=== PATIENT | female | born 1995 | race American Indian/Alaskan Native ===

== ENCOUNTER 2017-04-19 03:56 | Emergency (ER) | payer MEDICAID ==
[2017-04-19 05:37] VITALS: BP 130/65
--- NOTE | 2017-04-19 06:22 | Emergency Department Report ---
- General Chief Complaint: Upper Respiratory Infection Stated Complaint: SORE THROAT,COUGH Time Seen by Provider: 04/19/17 06:17 Source: patient Mode of arrival: Ambulatory Limitations: No Limitations - History of Present Illness Initial Comments: 21-year-old female that is 4 para 3 comes in today stating he' s had a sore throat and has been coughing up green sputum for the last 2 days. Patient reports she's had no fever but chills. He denies any diarrhea or vomiting. She states that she has been nauseated but thinks is due to her . Patient reports she is currently 14 weeks . 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 She reports she's been taking vitamins has no known drug allergies and only a history of asthma. MD Complaint: fever, cough, sore throat -: days(s) (2) Severity: mild Severity scale (0 -10): 4 Worsens With: nothing Context: sick contacts - Related Data Allergies Allergy/AdvReac Type Severity Reaction Status Date / Time No Known Allergies Allergy Unverified 04/19/17 05:31 ED Review of Systems ROS: Stated complaint: SORE THROAT,COUGH Other details as noted in HPI Constitutional: chills. denies: fever Eyes: denies: eye pain, eye discharge, vision change ENT: throat pain Respiratory: cough Cardiovascular: denies: chest pain, palpitations Endocrine: no symptoms reported Gastrointestinal: nausea. denies: abdominal pain, diarrhea Genitourinary: denies: urgency, dysuria, discharge Musculoskeletal: denies: back pain, joint swelling, arthralgia Skin: denies: rash, lesions Neurological: denies: headache, weakness, paresthesias Psychiatric: denies: anxiety, depression Hematological/Lymphatic: denies: easy bleeding, easy bruising ED Past Medical Hx - Past Medical History Previous Medical History?: Yes Additional medical history: Patient is 14 weeks - Social History Smoking Status: Never Smoker ED Physical Exam - General Limitations: No Limitations General appearance: alert, in no apparent distress - Head Head exam: Present: atraumatic, normocephalic - Eye Eye exam: Present: normal appearance - ENT ENT exam: Present: mucous membranes moist - Neck Neck exam: Present: normal inspection - Respiratory Respiratory exam: Present: normal lung sounds bilaterally. Absent: respiratory distress - Cardiovascular Cardiovascular Exam: Present: regular rate, normal rhythm. Absent: systolic murmur, diastolic murmur, rubs, gallop - GI/Abdominal GI/Abdominal exam: Present: soft, normal bowel sounds - Extremities Exam Extremities exam: Present: normal inspection - Back Exam Back exam: Present: normal inspection - Neurological Exam Neurological exam: Present: alert, oriented X3 - Psychiatric Psychiatric exam: Present: normal affect, normal mood - Skin Skin exam: Present: warm, dry, intact, normal color. Absent: rash ED Course Vital Signs 04/19/17 05:33 Temperature 98.4 F Pulse Rate 80 Respiratory 20 Rate Blood Pressure 130/65 O2 Sat by Pulse 98 Oximetry ED Medical Decision Making - Medical Decision Making Patient's been evaluated by this provider fast track. Discussed with patient that we will send out a strep test that comes back negative she can continue with Tylenol for sore throat. She can follow up with her primary care provider. Critical care attestation.: If time is entered above; I have spent that time in minutes in the direct care of this critically ill patient, excluding procedure time. ED Disposition Clinical Impression: URI, acute Disposition: DC-01 TO HOME OR SELFCARE Is pt being admited?: No Does the pt Need Aspirin: No Condition: Stable Instructions: Viral Syndrome (ED) Additional Instructions: You can take Tylenol for sore throat. You can normal saline drops for nasal secretion. Follow-up which her primary care provider in 2-3 days. Referrals: [facility] [Provider Group] - 3-5 Days
== END 2017-04-19 07:30 | disposition home or self-care (01) ==
LOC: ED 03:56
DX: J06.9 Acute upper respiratory infection, unspecified (principal)
CPT/HCPCS: 87116; 87430; 99283

== ENCOUNTER 2017-09-19 03:40 | Outpatient (CLI) | payer MEDICAID ==
[2017-09-19 04:12] VITALS: BP 133/66
[2017-09-19] MEDS ORDERED: VISTARIL PO ONE (04:42)
== END 2017-09-19 04:52 | disposition home or self-care (01) ==
LOC: TRG 03:40
PROVIDERS: ATTEND Obstetrics & Gynecology
DX: O47.1 False labor at or after 37 completed weeks of gestation (principal); Z3A.37 37 weeks gestation of pregnancy
CPT/HCPCS: 59025; Q0177

== ENCOUNTER 2017-10-18 04:52 | Outpatient (CLI) | payer MEDICAID ==
[2017-10-18 07:42] VITALS: BP 115/58
== END 2017-10-18 08:20 | disposition home or self-care (01) ==
LOC: TRG 04:52
PROVIDERS: ATTEND Obstetrics & Gynecology
DX: O62.8 Other abnormalities of forces of labor (principal); O26.893 Other specified pregnancy related conditions, third trimester; J45.909 Unspecified asthma, uncomplicated; Z3A.41 41 weeks gestation of pregnancy
CPT/HCPCS: 59025

== ENCOUNTER 2018-09-09 07:30 | Emergency (ER) | payer MEDICAID ==
[2018-09-09 07:44] VITALS: BP 136/74
--- NOTE | 2018-09-09 08:16 | Emergency Department Report ---
ED ENT HPI - General Chief complaint: Earache Stated complaint: RT EARACHE/SWOLLEN JAW Time Seen by Provider: 09/09/18 07:55 Source: patient Mode of arrival: Ambulatory Limitations: No Limitations - History of Present Illness Initial comments: Patient has a foot of 22-year-old female presents to the complaining of right ear that began yesterday. Patient states she is having associated right jaw pain since. Patient denies any trauma interested for the patient to the ears. Patient states that she has been swimming recently otherwise no othe cc she denies fevers chills with nausea vomiting/cough/chest pain MD complaint: ear pain Location: R ear Severity: mild Severity scale (0 -10): 4 Quality: aching Consistency: constant Improves with: none Context- Ear: recent swimming Associated Symptoms: denies: cough, pain with swallowing, sore throat, discharge from ear, rhinorrhea - Related Data Home Medications Medication Instructions Recorded Confirmed Last Taken Pnv No.103/Folic/Om3s/Fish Oil 1 each PO QDAY 09/19/17 10/20/17 10/19/17 [ Gummies] Previous Rx's Medication Instructions Recorded Last Taken Type oxyCODONE /ACETAMINOPHEN [Percocet 1 - 2 tab PO Q4H PRN #30 tablet 10/21/17 Unknown Rx 5/325 mg] Docusate Sodium [Colace] 100 mg PO BID PRN #60 capsule 10/23/17 Unknown Rx Ferrous Sulfate [Feosol 325 MG tab] 325 mg PO TID #90 tablet 10/23/17 Unknown Rx Lidocain2.5%/Prilocai2.5% [Emla] 5 gm TP ONCE #1 tube 10/24/17 Unknown Rx Amoxicillin [Amoxicillin TAB] 875 mg PO BID #20 tablet 09/09/18 Unknown Rx Ibuprofen [Motrin 800 MG tab] 800 mg PO Q8H PRN #30 tablet 09/09/18 Unknown Rx Allergies Allergy/AdvReac Type Severity Reaction Status Date / Time No Known Allergies Allergy Unverified 04/19/17 05:31 ED Dental HPI - General Chief complaint: Earache Stated complaint: RT EARACHE/SWOLLEN JAW Time Seen by Provider: 09/09/18 07:55 Source: patient Mode of arrival: Ambulatory Limitations: No Limitations - Related Data Home Medications Medication Instructions Recorded Confirmed Last Taken Pnv No.103/Folic/Om3s/Fish Oil 1 each PO QDAY 09/19/17 10/20/17 10/19/17 [ Gummies] Previous Rx's Medication Instructions Recorded Last Taken Type oxyCODONE /ACETAMINOPHEN [Percocet 1 - 2 tab PO Q4H PRN #30 tablet 10/21/17 Unknown Rx 5/325 mg] Docusate Sodium [Colace] 100 mg PO BID PRN #60 capsule 10/23/17 Unknown Rx Ferrous Sulfate [Feosol 325 MG tab] 325 mg PO TID #90 tablet 10/23/17 Unknown Rx Lidocain2.5%/Prilocai2.5% [Emla] 5 gm TP ONCE #1 tube 10/24/17 Unknown Rx Amoxicillin [Amoxicillin TAB] 875 mg PO BID #20 tablet 09/09/18 Unknown Rx Ibuprofen [Motrin 800 MG tab] 800 mg PO Q8H PRN #30 tablet 09/09/18 Unknown Rx Allergies Allergy/AdvReac Type Severity Reaction Status Date / Time No Known Allergies Allergy Unverified 04/19/17 05:31 ED Review of Systems ROS: Stated complaint: RT EARACHE/SWOLLEN JAW Other details as noted in HPI Comment: All other systems reviewed and negative ED Past Medical Hx - Past Medical History Previous Medical History?: Yes Hx Hypertension: No Hx Congestive Heart Failure: No Hx Diabetes: No Hx Deep Vein Thrombosis: No Hx Renal Disease: No Hx Sickle Cell Disease: No Hx Seizures: No Hx Asthma: Yes (last attack last year) Hx COPD: No Hx HIV: No Additional medical history: Patient is 14 weeks - Surgical History Past Surgical History?: Yes Additional Surgical History: x 1 - Social History Smoking Status: Never Smoker Substance Use Type: None - Medications Home Medications: Home Medications Medication Instructions Recorded Confirmed Last Taken Type Pnv No.103/Folic/Om3s/Fish Oil 1 each PO QDAY 09/19/17 10/20/17 10/19/17 History [ Gummies] oxyCODONE /ACETAMINOPHEN [Percocet 1 - 2 tab PO Q4H PRN #30 tablet 10/21/17 Unknown Rx 5/325 mg] Docusate Sodium [Colace] 100 mg PO BID PRN #60 capsule 10/23/17 Unknown Rx Ferrous Sulfate [Feosol 325 MG tab] 325 mg PO TID #90 tablet 10/23/17 Unknown Rx Lidocain2.5%/Prilocai2.5% [Emla] 5 gm TP ONCE #1 tube 10/24/17 Unknown Rx Amoxicillin [Amoxicillin TAB] 875 mg PO BID #20 tablet 09/09/18 Unknown Rx Ibuprofen [Motrin 800 MG tab] 800 mg PO Q8H PRN #30 tablet 09/09/18 Unknown Rx ED Physical Exam - General Limitations: No Limitations General appearance: alert, in no apparent distress - Head Head exam: Present: atraumatic, normocephalic - Eye Eye exam: Present: normal appearance - ENT ENT exam: Present: mucous membranes moist - Expanded ENT Exam Expanded Ear exam: Present: normal external inspection. Absent: auricular hematoma, auricular trauma TM/Canal exam: Erythema: Right TM, Bulging: Right TM, Effusion: Right TM, Perforation: Left TM, Loss of Landmarks: Left TM, Foreign Body: Left TM, Cerumen Impaction: Left TM, Mastoid Tenderness: Left TM, Canal Discharge: Left TM, Canal Tenderness: Left TM Mouth exam: Present: normal external inspection Teeth exam: Present: normal inspection Throat exam: Positive: normal inspection. Negative: tonsillar erythema, tonsillomegaly, tonsillar exudate - Neck Neck exam: Present: normal inspection, full ROM. Absent: tenderness, lymphadenopathy - Respiratory Respiratory exam: Present: normal lung sounds bilaterally. Absent: respiratory distress - Cardiovascular Cardiovascular Exam: Present: regular rate, normal rhythm. Absent: systolic murmur, diastolic murmur, rubs, gallop - GI/Abdominal GI/Abdominal exam: Present: soft, normal bowel sounds - Extremities Exam Extremities exam: Present: normal inspection - Back Exam Back exam: Present: normal inspection - Neurological Exam Neurological exam: Present: alert, oriented X3 - Psychiatric Psychiatric exam: Present: normal affect, normal mood - Skin Skin exam: Present: warm, dry, intact, normal color. Absent: rash ED Course Vital Signs 09/09/18 07:43 Temperature 97.7 F Pulse Rate 67 Respiratory 16 Rate Blood Pressure 136/74 O2 Sat by Pulse 98 Oximetry ED Medical Decision Making - Medical Decision Making 22 year-old female presented with otitis media of the right ear ED course: Patient received Motrin and amoxicillin in the ER. I discussed all findings with the patient I discussed with mother to take antibiotics as prescribed. I discussed to continue and increase hydrating I discussed follow-up with the care physician. Was no fever during the ED stay Vital signs are normalized, patient is in no acute distress or respiratory distress. Patient had an uneventful ED stay Critical care attestation.: If time is entered above; I have spent that time in minutes in the direct care of this critically ill patient, excluding procedure time. ED Disposition Clinical Impression: Otitis media Disposition: DC-01 TO HOME OR SELFCARE Is pt being admited?: No Does the pt Need Aspirin: No Condition: Stable Instructions: Otitis Media (ED) Additional Instructions: Make sure to follow up with the primary care physician as discussed. Take all your medications as you've been prescribed. If you have any worsening symptoms or develop new symptoms please return to ED immediately. Prescriptions: Amoxicillin [Amoxicillin TAB] 875 mg PO BID #20 tablet Ibuprofen [Motrin 800 MG tab] 800 mg PO Q8H PRN #30 tablet PRN Reason: Pain Referrals: VERENICE BHATIALOWELL MD NIKO [Primary Care Provider] - 3-5 Days [facility] [address] [Outside] - 3-5 Days [facility] [Outside] - 3-5 Days Forms: Work/School Release Form(ED) Time of Disposition: 08:31
[2018-09-09] MEDS ORDERED: IBUPROFEN PO ONE (08:17)
== END 2018-09-09 08:47 | disposition home or self-care (01) ==
LOC: ED 07:30
DX: H66.91 Otitis media, unspecified, right ear (principal); R68.84 Jaw pain; J45.909 Unspecified asthma, uncomplicated; Z79.899 Other long term (current) drug therapy
CPT/HCPCS: 99282

== ENCOUNTER 2019-03-24 18:42 | Emergency (ER) | payer MEDICAID ==
[2019-03-24 20:14] VITALS: BP 150/72
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
[2019-03-24 23:05] LABS: HCG Qualitative,Urine Negative (Negative)
== END 2019-03-24 21:15 | disposition left against medical advice (07) ==
LOC: ED 18:42
DX: M79.642 Pain in left hand (principal); M79.641 Pain in right hand; Z53.21 Procedure and treatment not carried out due to patient leaving prior to being seen by health care provider
CPT/HCPCS: 81025